=== PATIENT | female | born 1950 | race Caucasian/White ===

== ENCOUNTER 2023-03-21 16:34 | Outpatient (OUT) | payer MEDICARE, SELFPAY ==
--- NOTE | 2023-03-21 16:41 | XR_ITS ---
The [address] [address] Patient Name: JAYLEEN TEJEDA MRN: [id number] date: 1950 Sex: F Assigned Patient Location: [facility] Current Patient Location: [facility] Accession/Order Number: [id number] Exam Date: 03/21/2023 16:55 Report Date: 03/21/2023 17:21 At the request of: RAYO TRACY Procedure: XR abdomen min 2V EXAM: PLAIN FILM OF THE ABDOMEN HISTORY: Abdominal pain.R35.0, M54.9, R10.2 COMPARISON: None. TECHNIQUE: 2 views of the abdomen/pelvis submitted for review. FINDINGS: Lines and Tubes: Clips are in the RUQ. Free air: None. The bowel gas pattern is nonobstructive. There are no abnormal calcifications. However, evaluation of the renal shadows is limited due to overlying bowel gas. No portal venous air. Osseous structures do not demonstrate any acute abnormality. XR/XR abdomen min 2V IMPRESSION: 1. Nonobstructive bowel gas pattern. 2. Minimal retention of stool. Electronically authenticated by: BRAYDEN ACKERMAN Date: 03/21/2023 17:21
== END 2023-03-21 16:35 | disposition home or self-care (01) ==
PROVIDERS: PCP Family Medicine; Visit Provider Family Medicine
DX: R35.0 Frequency of micturition (principal); M54.9 Dorsalgia, unspecified; R10.2 Pelvic and perineal pain
CPT/HCPCS: 74019